=== PATIENT | female | born 1990 | race Caucasian/White ===

== ENCOUNTER 2016-06-20 17:34 | Emergency (ER) | payer BC ==
[~2016-06-20] VITALS: Ht 172.7 cm; Wt 54.4 kg
[2016-06-20] MEDS ORDERED: PROCHLORPERAZINE EDISYLATE 10 MG/2 ML VIAL IV ONE (18:00)
[2016-06-20] MEDS ORDERED: IV NORMAL SALINE 1000 ML BAG IV ONE (18:00)
[2016-06-20] MEDS ORDERED: KETOROLAC TROMETHAMINE 15 MG INJ IVP ONE (18:00)
[2016-06-20] MEDS ORDERED: KETOROLAC TROMETHAMINE 15 MG INJ ONE (18:06)
[2016-06-20] MEDS ORDERED: PROCHLORPERAZINE EDISYLATE 10 MG/2 ML VIAL ONE (18:06)
--- NOTE | 2016-06-20 18:46 | NUR ---
mse completed, meds administered, pt stated no more headache. pt then had iv d/c'd intact, rx x 1 and aci given. pt ambulated w/o diff/took all belongings.
[2016-06-20 18:48] VITALS: BP 120/88
== END 2016-06-20 18:48 | disposition home or self-care (01) ==
LOC: ER 17:34
DX: G43.909 Migraine, unspecified, not intractable, without status migrainosus (principal)
CPT/HCPCS: 96361; 96374; 96375; 99284; A4663; J0780; J1885; J7030